=== PATIENT | female | born 1955 | race Caucasian/White ===

== ENCOUNTER 2024-08-03 15:34 | Outpatient (CLI) | payer MEDICARE, OTHER, SELFPAY ==
--- NOTE | ~2024-08-03 | XR_ITS ---
XR hand RT min 3V Ordering provider: Steffi Jack MD History: . G56.03 - Carpal tunnel syndrome, bilateral upper limbs . Comparison: None. FINDINGS: BONES: No acute fracture or dislocation. Cystic changes in the scaphoid and lunate bones. JOINT SPACES: Osteoarthritic changes of the first carpometacarpal joint and scaphotrapezial joint. Na rrowing of proximal and distal interphalangeal joints. SOFT TISSUES: Normal. IMPRESSION: No acute osseous abnormality right hand. Polyarticular osteoarthritic changes. Reviewed, dictated and finalized at location A. RVISOR FRAME SAMPLE AND PATTERN
--- NOTE | ~2024-08-03 | XR_ITS ---
XR hand LT min 3V Ordering provider: Steffi Jack MD History: . G56.03 - Carpal tunnel syndrome, bilateral upper limbs . Comparison: None. FINDINGS: BONES: No acute fracture or dislocation. Cystic area in the scaphoid bone. JOINT SPACES: Osteoarthritic changes of the first carpometacarpal joint and scaphotrapezial joint rashard nt. Narrowing of the proximal and distal interphalangeal joints. SOFT TISSUES: Unremarkable. IMPRESSION: No acute osseous abnormality left hand. Polyarticular osteoarthritic changes. Reviewed, dictated and finalized at location A. OLOGY SECRETARY
--- OUTSIDE RECORDS SUMMARY | 2024-08-03 17:19 | XMS_ITS | Clinical Summary ---
Author Organization [facility] Address [address] [place] [address] Care Team Providers Care Production Control Expert Name Role Phone Celestina Jimenez MD Primary Care Provider [phone] Allergies Active Allergy Reactions Criticality Noted Date Comments Benzoin Rash High 06/12/2023 Blisters Medications albuterol sulfate HFA 108 (90 Base) MCG/ACT inhalerIndicat ions:SHORTNESS OF BREATH Inhale 2 puffs into the lungs every 8 (eight) hours as needed. Indications: SHORTNESS OF BREATH 1 Active omeprazole 40 MG capsuleIndicat ions:HIATAL HERNIA AND REFLUX Take 1 capsule (40 mg total) by mouth daily. Indications: HIATAL HERNIA AND REFLUX 1 Active PARoxetine 30 MG tabletIndicati ons:DEPRESSION Take 2 tablets (60 mg total) by mouth daily. Indications: DEPRESSION 1 Active pravastatin 20 MG tabletIndicati ons:CHOLESTERO L Take 2 tablets (40 mg total) by mouth nightly at bedtime. Indications: CHOLESTEROL 1 Active SUMAtriptan 50 MG tabletIndicati ons:MIGRAINES Take 1 tablet (50 mg total) by mouth as needed for Migraine. Indications: MIGRAINES 1 Active zolpidem 10 MG tabletIndicati ons:SLEEP Take 1 tablet (10 mg total) by mouth nightly. Indications: SLEEP 1 Active amLODIPine-mack azepril (LOTREL) 5-20 MG capsuleIndicat ions:BLOOD PRESSURE Take 1 capsule by mouth daily. Indications: BLOOD PRESSURE 3 Active celecoxib (CELEBREX) 200 MG capsuleIndicat ions:JOINT PAIN Take 1 capsule (200 mg total) by mouth daily. Indications: JOINT PAIN 3 Active QUEtiapine (SEROQUEL) 100 MG tabletIndicati ons:SLEEP Take 1 tablet (100 mg total) by mouth nightly at bedtime. Indications: SLEEP 3 Active Glucosamine 500 MG CapIndications :JOINT HEALTH Take 1 capsule by mouth 2 (two) times daily. Indications: JOINT HEALTH 4 Active guaiFENesin ER (MUCINEX) 600 MG 12 hr tabletIndicati ons:CONGESTION Take 1 tablet (600 mg total) by mouth 2 (two) times daily. 16 tablet 4 Active ipratropium-al buterol (DUONEB) 0.5-2.5 (3) MG/3ML SolutionIndica tions:WHEEZING OR SHORTNESS OF BREATH Duoneb 3mls every 4 hrs for wheezing and shortness of breath 360 mL 4 Active Senna-Fennel (NATURAL VEGETABLE LAXATIVE) TabIndications :CONSTIPATION Take 1 tablet by mouth daily as needed (CONSTIPATION ). Indications: CONSTIPATION 4 Active OXYGENIndicati ons:SHORTNESS OF BREATH 2 L/min by Nasal route continuous. 2 LITERS AT REST AND 4 LITERS WITH ACTIVITY Indications: SHORTNESS OF BREATH 4 Active buPROPion XL (WELLBUTRIN XL) 150 MG 24 hr tabletIndicati ons:Depression Take 1 tablet (150 mg total) by mouth daily. Indications: Depression Active Budeson-Glycop yrrol-Formoter ol (BREZTRI AEROSPHERE) 160-9-4.8 MCG/ACT AerosolIndicat ions:COPD Inhale 1 puff into the lungs 2 (two) times daily. Indications: COPD 4 Active levalbuterol (XOPENEX) 1.25 MG/3ML nebulizer solutionIndica tions:COPD Take 3 mLs (1.25 mg total) by nebulization 4 (four) times daily. Indications: COPD 4 Active gabapentin (NEURONTIN) 100 MG capsule Take 1 capsule (100 mg total) by mouth 3 (three) times daily. 5 Active calcium carb-cholecalc iferol (CALTRATE 600+D) 600-20 MG-MCG tabletIndicati ons:CALCIUM SUPPLEMENT Take 1 tablet by mouth daily. Indications: CALCIUM SUPPLEMENT 025 Discontin ued(Thera py completed ) potassium chloride CR (KLOR-CON M) 20 MEQ tabletIndicati ons:POTASSIUM SUPPLEMENT Take 2 tablets (40 mEq total) by mouth daily. 60 tablet 4 025 Discontin ued(Thera py completed ) acetaminophen (TYLENOL) 500 MG tabletIndicati ons:Pain Take 2 tablets (1,000 mg total) by mouth every 6 (six) hours as needed for Pain. Indications: Pain Patient reported taking on her own. 4 025 Discontin ued(Thera py completed ) Hospital, Clinic, or Other Facility Administered Medication Ordered Dose Route Frequency Start Date End Date Status methylPREDNISolone acetate (DEPO-Medrol) injection 40 mgIndications:Arthritis of carpometacarpal (CMC) joint of right thumb 40 mg IX Once 07/05/2024 07/05/2024 Ended lidocaine (PF) (XYLOCAINE) 1 % injection 0.5 mLIndications:Arthritis of carpometacarpal (CMC) joint of right thumb 0.5 mL IX Once 07/05/2024 07/05/2024 Ended methylPREDNISolone acetate (DEPO-Medrol) injection 80 mgIndications:Primary osteoarthritis of left knee 80 mg Other Once 07/07/2024 07/07/19 25 Ended lidocaine (XYLOCAINE) 1 % injection SOLN 8 mLIndications:Primary osteoarthritis of left knee 8 mL Other Once 07/07/2024 07/07/19 25 Ended lidocaine (PF) (XYLOCAINE) 1 % injection 0.5 mLIndications:Arthritis of carpometacarpal (CMC) joint of left thumb 0.5 mL Other Once 07/08/2024 07/08/2024 Ended methylPREDNISolone acetate (DEPO-Medrol) injection 40 mgIndications:Arthritis of carpometacarpal (CMC) joint of left thumb 40 mg Other Once 07/08/2024 07/08/2024 Ended Active Problems Problem Noted Date Diagnosed Date Pneumonia 06/22/2023 Osteoporosis 01/01/2023 Bilateral carpal tunnel syndrome 12/16/2022 Primary osteoarthritis of fi rst carpometacarpal joint of left hand 12/16/2022 Primary osteoarthritis of fi rst carpometacarpal joint of right hand 12/16/2022 Osteoarthritis of left knee 06/26/2021 Encounters Date Type Department Care Team Description 07/08/2024 10:30 AM SENIOR FINANCE MANAGER Office Visit [address] [address] Cathy Everett PA Hand Pain (LEFT ) 07/07/2024 11:30 AM SENIOR FINANCE MANAGER Office Visit [address] [address] Cathy Everett PA Knee Pain (LEFT); Injection (LEFT KNEE) 07/07/[address] [address] Cathy Everett PA Referral 07/07/[address] [address] Cathy Everett PA Referral 07/07/2024 Travel 07/05/2024 10:45 AM SENIOR FINANCE MANAGER Office Visit [address] [address] Cathy Everett PA Knee Pain (LEFT); Hand Pain (BILATERAL) 07/05/2024 10:38 AM SENIOR FINANCE MANAGER - 07/05/2024 11:59 PM SENIOR FINANCE MANAGER Hospital Encounter [facility] [address] [place] [address] Cathy Everett PA Discharge Disposition: Home or Self Care (Routine Discharge) 07/05/2024 MyChart Message Enc [address] [address] Cathy Everett PA Visit Follow Up 07/05/2024 Travel 06/30/[address] [address] Cathy Everett PA Chart Prep [facility] [place] [address] Jovani Rasmussen MD Appointment Request; Follow Up Call 05/05/2024 11:30 AM SENIOR FINANCE MANAGER - 05/05/2024 11:59 PM SENIOR FINANCE MANAGER Hospital Encounter [facility] [address] [place] [address] [place] [address] Saqib Nuñez MD Injection Discharge Disposition: Home or Self Care (Routine Discharge) 05/05/2024 11:00 AM SENIOR FINANCE MANAGER - 05/05/2024 11:29 AM [facility] Hospital Encounter [facility] [address] [place] [address] [place] [address] Saqib Nuñez MD Discharge Disposition: Home or Self Care (Routine Discharge) 05/05/2024 Travel from Last 3 Months Immunizations Name Administration Dates Next Due Fluzone High Dose - >Age 65 (Prefilled Syringe) 04/22/2021,06/19/2020 Hepatitis B (Generic: Adult) 10/16/2000,06/09/19,04/30/2000 Hepatitis B Vaccine Adult 10/16/2000,06/09/2000, 04/30/2000 Influenza Adult (Generic) 03/02/2019,,04/22/2017,2015,03/12/2014 Pneumococcal (Prevnar 20) 08/21/2022 Shingrix 08/21/2022 Tdap (Generic) 08/21/2022 Family History Medical History Relation Comments Breast Cancer Mother Breast Cancer Sister Relation Status Comments Father Mother Sister Social History Tobacco Use Types Packs/Day Years Used Date Smoking Tobacco: Every Day Cigarettes Smokeless Tobacco: Never Tobacco Cessation:Ready to Q uit: Not Asked; Counseling Given: Not Answered Alcohol Use Standard Drinks/Week Comments Not Currently 0 (1 standard drink = 0.6 oz pur e alcohol) OASIS D0700: Social Isolation Answer Da te Recorded Frequency of experiencing loneliness or isolatio n Never 12/14/2023 OASIS A1250: Transportation Answer Date Recorded Lack of Transportation (Medical) No 12/14/2023 Lack of Transportation (Non-Medical) No 12/14/2023 Patient Unable or Declines to Respond No 12/14/2023 OASIS B1300: Health Literacy Answer Shawn e Recorded Frequency of needing help to read materials from doctor or pharmacy Never 12/14/2023 [facility] Utilities Answer Date Recorded In the past 12 months has e electric, gas, oil, or water company threatened to shut off services in your home? Patient declined 06/22/2023 Humiliation, Afraid, Rape, and Kick questionnair e Answer Date Recorded Within the last year, have y ou been afraid of your partner or ex-partner? Patient declined 06/22/2023 Within the last year, have y ou been humiliated or emotionally abused in other ways by your partner or ex-partner? Patient declined 06/22/2023 Within the last year, have y ou been kicked, hit, slapped, or otherwise physically hurt by your partner or ex-partner? Patient declined 06/22/2023 Within the last year, have y ou been raped or forced to have any kind of sexual activity by your partner or ex-partner? Patient declined 06/22/2023 Overall Financial Resource Strain (CARDIA) Answe r Date Recorded How hard is it for you to pa y for the very basics like food, housing, medical care, and heating? Patient declined 06/22/2023 Hunger Vital Sign Answer Date Recorded Within the past 12 months, y ou worried that your food would run out before you got the money to buy more. Patient declined Within the past 12 months, t he food you bought just didn't last and you didn't have money to get more. Patient declined PRAPARE - Transportation Answer Date Re corded In the past 12 months, has l ack of transportation kept you from medical appointments or from getting medications? Patient declined 06/22/2023 In the past 12 months, has l ack of transportation kept you from meetings, work, or from getting things needed for daily living? Patient declined 06/22/2023 Housing Stability Vital Sign Answer Shawn e Recorded In the last 12 months, was t here a time when you were not able to pay the mortgage or rent on time? Patient declined 06/22/19 24 In the last 12 months, how many places have you lived? 1 06/22/2023 In the last 12 months, was t here a time when you did not have a steady place to sleep or slept in a fci (including now)? Patient declined 06/22/2023 Comments No Sex and Gender Information Value Date Recorded Sex Assigned at Female 07/05/2024 10:38 AM SENIOR FINANCE MANAGER Legal Sex Female 9:27 PM CDT Gender Identity Female 06/24/2021 11:10 AM SENIOR FINANCE MANAGER Sexual Orientation Not on file Last Filed Vital Signs Vital Sign Reading Time Taken Comments Blood Pressure 147/89 05/05/2024 12:43 PM SENIOR FINANCE MANAGER Pulse 84 05/05/2024 12:43 PM SENIOR FINANCE MANAGER Temperature 36.1 C (97 F) 05/05/2024 12:43 PM SENIOR FINANCE MANAGER Respiratory Rate 20 05/05/2024 12:43 PM SENIOR FINANCE MANAGER Oxygen Saturation 91% 05/05/2024 12:43 PM SENIOR FINANCE MANAGER Inhaled Oxygen Concentration - - Weight 76.7 kg (169 lb) 07/08/2024 10:29 AM SENIOR FINANCE MANAGER Height 154.9 cm (5' 1 ) 07/08/2024 10:29 AM SENIOR FINANCE MANAGER Body Mass Index 31.93 07/08/2024 10:29 AM SENIOR FINANCE MANAGER Plan of Treatment Upcoming Encounters Date Type Department Care Team (Late st Contact Info) Description 09/12/2024 11:00 AM CDT Office Visit [facility] [address] [place] [id number] Cody Urena Jr., DO [address] [place] [address] Health Maintenance Due Date Last Done Comments Colorectal Cancer Screening Colonoscopy (10 Years) 1954 Hepatitis C 1972 RSV Immunization or 60+ Years (1 - Risk 60-74 years 1-dose series) 2014 Annual Medicare Wellness Visit 2019 Zoster Vaccines (2 of 2) 10/16/2022 08/21/2022 COVID-19 Vaccine ( season) 2024 06/28/2021, 08/10/2020, 07/20/2020 Influenza Adult (#1) 2024 04/22/2021, 06/19/2020, 03/02/2019, Additional history exists PHQ-2 (Physician Ely [place]) 06/01/2024 Mammogram Screening 09/10/2024 09/10/2022, 09/09/2021, 04/08/2021, Additional history exists DTaP, Tdap and Td Vaccines (2 - Td or Tdap) 08/21/2032 08/21/2022 Pneumococcal Vaccine: 65+ Years Completed 08/21/2022 Dexa Scan (General) Completed 09/10/2022 Meningococcal B Vaccine Aged Out No l onger eligible based on patient's age to complete this topic Meningococcal Vaccine Aged Out No selvin ngozi eligible based on patient's age to complete this topic RSV Immunizations Under 20 Months Aged Out No longer eligible based on patient's age to complete this topic Procedures Procedure Name Priority Date/Time Associated Diagnosis Comments XR HAND FRANK 3V Routine 07/05/2024 10:57 AM SENIOR FINANCE MANAGER Primary osteoarthritis of first carpometacarpal joint of left hand XR KNEE LT MIN 4V Routine 07/05/2024 10: 57 AM SENIOR FINANCE MANAGER Primary osteoarthritis of left knee COMPREHENSIVE METABOLIC PANEL Routine 05/05/2024 12:14 PM SENIOR FINANCE MANAGER Osteoporosis BONE DENSITY/DEXA Routine 09/10/2022 2:4 7 PM CDT Postmenopausal MG SCREENING W JUAN FRANK DIGI Routine 09/10/2022 2:40 PM CDT Visit for screening mammogram from Last 3 Months or Most Recently Relevant to Health Maintenance Results * XR HAND FRANK 3V (07/05/2024 10:57 AM SENIOR FINANCE MANAGER) Anatomical Region Laterality Modality Hand Radiographic Shaunna ging 07/06/2024 7:02 PM SENIOR FINANCE MANAGER Impressions 07/06/2024 7:11 PM SENIOR FINANCE MANAGER IMPRESSION: 1. No acute findings. 2. Bilateral osteoarthritis, similar to previous. Referred By: Interpreted By: Gil Farah MD, 07/06/2024 7:02 PM Narrative 07/06/2024 7:11 PM SENIOR FINANCE MANAGER [place] [id number] [place] [address] Examination: Right and left hand. Exam time: 0945 hours. Clinical history: Bilateral pain. Comparison: 05/07/2023. Technique: Three views each. Findings: LEFT HAND: No fracture, dislocation or other acute bony abnormality is identified. There are stable osteoarthritic changes involving the STT, first CMC and the IP joints with greatest, marked to severe, involvement in the first CMC joint. Prominent calcification along the radial aspect of the trapezium is again evident and may reflect sequela of old injury. Small cyst in the navicular is again evident. No other significant bone or joint abnormality is noted. No acute soft tissue abnormality. RIGHT HAND: No fracture, dislocation or other acute bony abnormality is identified. Mild to moderate osteoarthritic changes involving the first CMC joint, STT joint and the IP joints are similar to previous with relatively greater involvement in the STT joint, first CMC joint and the IP joint of the thumb. Small cyst in the lunate is again evident. No other significant bone or joint abnormality is noted. No acute soft tissue abnormality. Procedure Note Gil Farah MD - 07/06/2024 [facility] [address] [place] [address] Examination: Right and left hand. Exam time: 0945 hours. Clinical history: Bilateral pain. Comparison: 05/07/2023. Technique: Three views each. Findings: LEFT HAND: No fracture, dislocation or other acute bony abnormality isidentified. There are stable osteoarthritic changes involving the STT,first CMC and the IP joints with greatest, marked to severe, involvementin the first CMC joint. Prominent calcification along the radial aspectof the trapezium is again evident and may reflect sequela of old injury.Small cyst in the navicular is again evident. No other significant boneor joint abnormality is noted. No acute soft tissue abnormality. RIGHT HAND: No fracture, dislocation or other acute bony abnormality isidentified. Mild to moderate osteoarthritic changes involving the firstCMC joint, STT joint and the IP joints are similar to previous withrelatively greater involvement in the STT joint, first CMC joint and theIP joint of the thumb. Small cyst in the lunate is again evident. Noother significant bone or joint abnormality is noted. No acute softtissue abnormality. IMPRESSION: 1. No acute findings. 2. Bilateral osteoarthritis, similar to previous. Referred By: Interpreted By: Gil Farah MD, 07/06/2024 7:02 PM us [facility] Final Result * XR KNEE LT MIN 4V (07/05/2024 10:57 AM SENIOR FINANCE MANAGER) Anatomical Region Laterality Modality Knee Radiographic Shaunna ging 07/06/2024 7:12 PM SENIOR FINANCE MANAGER Impressions 07/06/2024 7:14 PM SENIOR FINANCE MANAGER IMPRESSION: No acute findings. Stable degenerative changes. Referred By: Interpreted By: Gil Farah MD, 07/06/2024 7:12 PM Narrative 07/06/2024 7:14 PM SENIOR FINANCE MANAGER [address] [place] [address] Examination: Left knee. Exam time: 0941 hours. Clinical history: Pain. Comparison: 08/10/2023. Technique: Bilateral weightbearing PA and sunrise and weightbearing AP and lateral views on the left. Findings: No fracture, dislocation or other acute bony abnormality is identified. There is stable marked medial femorotibial joint space narrowing on the left with associated subchondral sclerosis and periarticular osteophyte formation. There is stable mild medial femorotibial joint space narrowing on the right. No other significant bone or joint abnormality is noted. No acute soft tissue abnormality. Procedure Note Gil Farah MD - 07/06/[address] [place] [address] Examination: Left knee. Exam time: 0941 hours. Clinical history: Pain. Comparison: 08/10/2023. Technique: Bilateral weightbearing PA and sunrise and weightbearing AP andlateral views on the left. Findings: No fracture, dislocation or other acute bony abnormality isidentified. There is stable marked medial femorotibial joint spacenarrowing on the left with associated subchondral sclerosis andperiarticular osteophyte formation. There is stable mild medialfemorotibial joint space narrowing on the right. No other significantbone or joint abnormality is noted. No acute soft tissue abnormality. IMPRESSION: No acute findings. Stable degenerative changes. Referred By: Interpreted By: Gil Farah MD, 07/06/2024 7:12 PM [facility] Final Result * (ABNORMAL) COMPREHENSIVE METABOLIC PANEL (05/05/2024 12:14 PM SENIOR FINANCE MANAGER) SODIUM S/P/B 142 136 - 145 MMOL/L 05/05/2024 12:37 PM [facility] POTASSIUM S/P/B 4.3 3.5 - 5.1 MMOL/L 05/05/2024 12:37 PM [facility] CHLORIDE S/P/B 104 98 - 107 MMOL/L 05/05/2024 12:37 PM [facility] CO2 31.2 21.0 - 32.0 MMOL/L 05/05/2024 12:37 PM [facility] GLUCOSE 80 70 - 99 MG/DL 05/05/2024 12:37 PM [facility] Comment: FASTING GLUCOSE 100 TO 125 MG/DL IS CONSISTENT WITH IMPAIRED FASTING GLUCOSE. FASTING GLUCOSE >125 MG/DL IS CONSISTENT WITH DIABETES. RANDOM GLUCOSE >200 MG/DL WITH HYPERGLYCEMIC SYMPTOMS IS CONSISTENT WITH DIABETES. PER ADA GUIDELINES BUN 6 6 - 24 MG/DL 05/05/2024 12:37 PM [facility] CREATININE S/P/B 0.79 0.55 - 1.02 MG/DL 05/05/2024 12:37 PM [facility] CALCIUM S/P/B 8.8 8.4 - 10.5 MG/DL 05/05/2024 12:37 PM [facility] BILIRUBIN TOTAL S/P/B 0.5 0.2 - 1.0 MG/DL 05/05/2024 12:37 PM [facility] Comment: THIS ASSAY IS NOT RECOMMENDED FOR PATIENTS UNDERGOING TREATMENT WITH ELTROMBOPAG DUE TO THE POTENTIAL FOR FALSELY ELEVATED RESULTS. ALKALINE PHOSPHATASE S/P/B 83 55 - 142 U/L 05/05/2024 12:37 PM SENIOR FINANCE MANAGER [facility] AST 22 15 - 37 U/L 05/05/2024 12:37 PM [facility] ALT 20 14 - 59 U/L 05/05/2024 12:37 PM [facility] TOTAL PROTEIN S/P/B 7.5 6.4 - 8.2 G/DL 05/05/2024 12:37 PM [facility] ALBUMIN S/P/B 3.6 3.4 - 5.0 G/DL 05/05/2024 12:37 PM [facility] ANION GAP 6.8 5.0 - 15.0 MMOL/L 05/05/2024 12:37 PM [facility] OSMOLALITY (CALC) 291 MOSM/KG 024 12:37 PM [facility] Comment:REFERENCE RANGE NOT ESTABLISHED GFR ESTIMATE 80(L) >89 ML/MIN/1. 73 M2 05/05/2024 12:37 PM [facility] GFR NOTES GFR REFERENCE S: 05/05/2024 12:37 PM [facility] Comment: THE ESTIMATED GFR IS CALCULATED USING THE 2020 CKD-EPI EQUATION. THE FOLLOWING CATEGORIES FOR GRADING RENAL FUNCTION ARE RECOMMENDED BY THE INTERNATIONAL SOCIETY OF NEPHROLOGY (KDIGO 2012 CLINICAL PRACTICE GUIDELINE). G1,NORMAL OR HIGH: >89 ml/min/1.73 m2 G2,MILDLY DECREASED: 60-89 ml/min/1.73 m2 G3A,MILDLY TO MODERATELY DECREASED: 45-59 ml/min/1.73 m2 G3B,MODERATELY TO SEVERELY DECREASED: 30-44 ml/min/1.73 m2 G4,SEVERELY DECREASED: 15-29 ml/min/1.73 m2 G5,KIDNEY FAILURE: <15 ml/min/1.73 m2 05/05/2024 12:1 4 PM SENIOR FINANCE MANAGER us Saqib Nuñez MD LABORATORY Final Result [facility] [address] [place] [id number], * BONE DENSITY/DEXA (09/10/2022 2:47 PM CDT) Anatomical Region Laterality Modality Bone Bone Density 09/10/2022 4:18 PM CDT Impressions 09/10/2022 4:20 PM CDT Impression: BMD measured at AP lumbar spine, both total hips and both femoral necks all at WHO category level of osteopenia. Ordered By: MIGNON JOE Interpreted By: Lux Reina MD, 09/10/2022 4:18 PM Narrative 09/10/2022 4:20 PM CDT Examination: DEXA Bone densitometry EXAM DATE: 09/10/2022 2:17 PM Clinical history: Postmenopausal. Smoking history. Calcium supplementation. Vitamin D use. Prior hysterectomy. History of hormone replacement therapy. Dairy product consumption. Weight-bearing exercise. Technique: DEXA bone minimal density evaluation was performed in the AP projection over the lumbar spine and over both hips in the AP projection utilizing standard imaging techniques. Assessment: The BMD measured at the AP spine L1-L4 is 0.828 g/cm2 with a T-score of -2.0 and a Z-Score of 0.0. The patient is considered osteopenic according to World Health Organization (WHO) criteria. Bone density is between 10 and 25% below young normal. Fracture risk is moderate. Treatment is advised. The BMD measured at the femur total left is 0.724 g/cm2 with a T-score of -1.8 and a Z-Score of -0.4. The patient is considered osteopenic according to World Health Organization (WHO) criteria. Bone density is between 10 and 25% below young normal. Fracture risk is moderate. Treatment is advised. The BMD measured at the left femoral neck is 0.628 g/sq cm resulting in a T score of -2.0 and a Z score of -0.3, values at the WHO category level of osteopenia. The BMD measured at the femur total right is 0.678 g/cm2 with a T-score of -2.2 and aZ-Score of -0.7. The patient is considered osteopenic according to World Health Organization (WHO) criteria. Bone density is between 10 and 25% below young normal. Fracture risk is moderate. Treatment is advised. The BMD measured at the right femoral neck is 0.589 g/sq cm resulting in a T score of -2.3 and a Z score of -0.6, values at the WHO category level of osteopenia. FRAX results: 10 year probability of major osteoporotic fracture 13% and of hip fracture 4.1%. Recommendations: All patients should ensure an adequate intake of dietary calcium and vitamin D. The NOF recommend adults under the age of 50 need 1000 mg of calcium and 400-800 IU of vitamin D daily. Effective therapy for the prevention and treatment of osteoporosis include biphosphonates. Follow-up: People with diagnosed cases of osteoporosis or at high risk for fracture should have regular bone mineral density test. For patients eligible for Medicare, routine testing is allowed once every 2 years. Testing frequency can be increased to one year for patients who have rapidly progressing disease, those who are receiving or discontinuing medical therapy to restore bone mass, or have additional risk factors. Based on these results, a followup exam is recommended in no earlier than 2 years for routine follow-up. As early as 1 year to assess efficacy of new medication therapy for treatment of osteoporosis. Procedure Note Lux Reina MD - 09/10/2022 Examination: DEXA Bone densitometry EXAM DATE: 09/10/2022 2:17 PM Clinical history: Postmenopausal. Smoking history. Calciumsupplementation. Vitamin D use. Prior hysterectomy. History of hormonereplacement therapy. Dairy product consumption. Weight-bearing exercise. Technique: DEXA bone minimal density evaluation was performed in the APprojection over the lumbar spine and over both hips in the AP projectionutilizing standard imaging techniques. Assessment: The BMD measured at the AP spine L1-L4 is 0.828 g/cm2 with a T-score of-2.0 and a Z-Score of 0.0. The patient is considered osteopenicaccording to World Health Organization (WHO) criteria. Bone density isbetween 10 and 25% below young normal. Fracture risk is moderate.Treatment is advised. The BMD measured at the femur total left is 0.724 g/cm2 with a T-score of-1.8 and a Z-Score of -0.4. The patient is considered osteopenicaccording to World Health Organization (WHO) criteria. Bone density isbetween 10 and 25% below young normal. Fracture risk is moderate.Treatment is advised. The BMD measured at the left femoral neck is 0.628 g/sq cm resulting in aT score of -2.0 and a Z score of -0.3, values at the WHO category level ofosteopenia. The BMD measured at the femur total right is 0.678 g/cm2 with a T-score of-2.2 and aZ-Score of -0.7. The patient is considered osteopenicaccording to World Health Organization (WHO) criteria. Bone density isbetween 10 and 25% below young normal. Fracture risk is moderate.Treatment is advised. The BMD measured at the right femoral neck is 0.589 g/sq cm resulting in aT score of -2.3 and a Z score of -0.6, values at the WHO category level ofosteopenia. FRAX results: 10 year probability of major osteoporotic fracture 13% andof hip fracture 4.1%. Recommendations: All patients should ensure an adequate intake of dietary calcium andvitamin D. The NOF recommend adults under the age of 50 need 1000 mg ofcalcium and 400-800 IU of vitamin D daily. Effective therapy for theprevention and treatment of osteoporosis include biphosphonates. Follow-up: People with diagnosed cases of osteoporosis or at high risk for fractureshould have regular bone mineral density test. For patients eligible forMedicare, routine testing is allowed once every 2 years. Testing frequencycan be increased to one year for patients who have rapidly progressingdisease, those who are receiving or discontinuing medical therapy torestore bone mass, or have additional risk factors. Based on these results, a followup exam is recommended in no earlier than2 years for routine follow-up. As early as 1 year to assess efficacy ofnew medication therapy for treatment of osteoporosis. Impression: BMD measured at AP lumbar spine, both total hips and both femoral necksall at WHO category level of osteopenia. Ordered By: MIGNON JOE Interpreted By: Lux Riena MD, 09/10/2022 4:18 PM us Mignon E Joe APNP DEXA Final Resul t * MG SCREENING W JUAN FRANK DIGI (09/10/2022 2:40 PM CDT) Anatomical Region Laterality Modality Breast Bilateral Mammography 09/10/2022 3:41 PM CDT Narrative 09/10/2022 3:42 PM CDT Examination: Digital screening mammogram with CAD. Clinical history: Asymptomatic patient presents for routine screening. Comparison: 09/09/2021, 09/06/2020, 07/26/2019, 07/13/2018. Technique: Bilateral digital mammograms. The exam was interpreted with the use of a computer-aided detection (CAD) system. Additional 3-D tomosynthesis images were acquired. Tissue density: The breast tissue contains scattered fibroglandular densities. Findings: The breast tissue contains scattered fibroglandular densities. Benign-appearing calcification noted. No suspicious mass, microcalcification or area of architectural distortion can be identified. From a mammographic standpoint, routine followup in one year would seem adequate. IMPRESSION: No suspicious change since the previous exams. Recommendation: 1: Routine Screening Bilateral in 1 Year Assessment: ACR BI-RADS 2 - BENIGN FINDING(S) Ordered By: MIGNON JOE Interpreted By: Gil Farah MD, 09/10/2022 3:41 PM Mignon GARRETTNP MAMMO Final Resul t from Last 3 Months or Most Recently Relevant to Health Maintenance Insurance MEDICARE [facility] Advance Directives * Full Code (Latest Code Status on File) Date Activated Date Inactivated Comments 10/23/2023 6:02 PM * Full Code Date Activated Date Inactivated Comments 08/27/2023 7:08 AM 10/23/2023 6:02 PM * Full Code Date Activated Date Inactivated Comments 06/28/2023 12:37 PM 08/21/2023 2:06 PM * Full Code Date Activated Date Inactivated Comments 06/22/2023 12:16 PM 06/25/2023 6:38 PM Care Teams Production Control Expert Relationship Specialty Start Date End Date Celestina Jimenez MD [address] [place] [address] PCP - General FAMILY PRACTICE 02/04/24
--- OUTSIDE RECORDS SUMMARY | 2024-08-03 17:19 | XMS_ITS | Encounter Summary ---
Author Organization [facility] Address [facility] [place] [address] Care Team Providers Care Fruit Picker Name Role Phone Celestina Jimenez MD Primary Care Provider [phone] Encounter Details Date Type Department Care Team (Late st Contact Info) Description 02/04/2024 GI-View Message Enc [address] [address] Carmen Pina, [facility] [address] [place] [address] Visit Follow Up Social History Tobacco Use Types Packs/Day Years Used Date Smoking Tobacco: Every Day Cigarettes Smokeless Tobacco: Never Alcohol Use Standard Drinks/Week Comments Not Currently [...] materials from doctor or pharmacy Never 12/14/2023 [facility] Utilities Answer Date Recorded In the past 12 months has th e [employer], gas, oil, or water [employer] threatened to shut off services in your [...] Sex Assigned at Female 07/05/2024 10:38 AM RING STRIKER Legal Sex Female 9:27 PM CDT Gender Identity Female 06/24/2021 11:10 AM RING STRIKER Sexual Orientation Not on file documented as of this encounter Functional Status * Are you deaf or do you have serious difficulty hearing Answer Date of Assessment Author Status No 06/22/2023 11:09 AM Gwendolyn Morel RN Active * Are you blind or do you have serious difficulty seeing, even when wearing glasses? Answer Date of Assessment Author Status No 06/22/2023 11:09 AM Gwendolyn Morel RN Active * Do you have serious difficulty walking or climbing stairs? Answer Date of Assessment Author Status Yes 06/22/2023 11:09 AM Gwendolyn Morel RN Active * Do you have difficulty dressing or bathing? Answer Date of Assessment Author Status No 06/22/2023 11:09 AM Gwendolyn Morel RN Active * Because of a physical, mental, or emotional condition, do you have difficulty doing errands alone such as visiting a doctor's office or shopping? Answer Date of Assessment Author Status No 06/22/2023 11:09 AM Gwendolyn Morel RN Active documented as of this encounter Mental Status * Because of a physical, mental, or emotional condition, do you have serious difficulty concentrating, remembering, or making decisions? Answer Entry Date Author Status No 06/22/2023 11:09 AM Gwendolyn Morel RN Active documented in this encounter Plan of Treatment Upcoming Encounters Date Type Department Care Team (Late st Contact Info) Description 09/12/2024 11:00 AM CDT Office Visit [address] [address] Cody Urena Jr., DO [address] [place] [address] documented as of this encounter Visit Diagnoses Not on filedocumented in this encounter Care Teams Fruit Picker Relationship Specialty Start Date End Date Celestina Jimenez MD [address] [place] [id number] PCP - General FAMILY PRACTICE 02/04/24 documented as of this encounter
--- OUTSIDE RECORDS SUMMARY | 2024-08-03 17:19 | XMS_ITS | Encounter Summary ---
Author Organization [facility] Address [facility] [place] [address] Care Team Providers Care Pulp Screen Operator Name Role Phone Celestina Jimenez MD Primary Care Provider [phone] Encounter Details Date Type Department Care Team (Late st Contact Info) Description 07/05/[address] [facility] [address] Cathy Everett PA [address] [place] [id number] Visit Follow Up Social History Tobacco [...] materials from doctor or pharmacy Never 12/14/2023 [facility] Utilities Answer Date Recorded In the past 12 months has th e [employer], gas, oil, or water [employer] threatened to shut off services in your [...] place to sleep or slept in a prison (including now)? Patient declined 06/22/2023 Comments No Sex and Gender Information Value Date Recorded Sex Assigned at Female 07/05/2024 10:38 AM IT COMMUNICATIONS SPECIALIST Legal Sex Female 9:27 PM CDT Gender Identity Female 06/24/2021 11:10 AM IT COMMUNICATIONS SPECIALIST Sexual Orientation Not on file documented as [...] Description 09/12/2024 11:00 AM CDT Office Visit [facility] [address] [address] Cody Urena Jr., DO [address] [place] [address] documented as of this encounter Visit Diagnoses Not on filedocumented in this encounter Care Teams Pulp Screen Operator Relationship Specialty Start Date End Date Celestina Jimenez MD [address] [place] [id number] PCP - General FAMILY PRACTICE 02/04/24 documented as of this encounter
== END 2024-08-03 15:35 | disposition home or self-care (01) ==
PROVIDERS: Visit Provider Plastic Surgery
DX: G56.03 Carpal tunnel syndrome, bilateral upper limbs (principal); M19.042 Primary osteoarthritis, left hand; M19.041 Primary osteoarthritis, right hand
CPT/HCPCS: 73130